=== PATIENT | female | born 1995 | race Caucasian/White ===

== ENCOUNTER 2016-10-14 05:17 | Emergency (ER) | payer BC ==
[~2016-10-14] VITALS: Ht 167.6 cm; Wt 60.2 kg
[2016-10-14 05:26] VITALS: TEMP 36.6; Ht 167.6 cm; Wt 60.2 kg
[2016-10-14] MEDS ORDERED: ONDA4TAB10 SL (06:00)
[2016-10-14] MEDS ORDERED: ONDANSETRON HOME PACK 4MG OD TAB PO ONE (06:00)
--- NOTE | 2016-10-14 06:16 | EMERGENCY ROOM VISIT NOTE ---
History First contact with patient: 05:33 Chief Complaint: HEAD INJURY (MINOR) Stated Complaint: CONCUSSION-PERSISTANT HEADACHE,UNEVEN PUPILS,NAUSE History of Present Illness The patient is a 20 year old female who presents to the Emergency Room with complaints of head injury 3 weeks ago. Patient states she fell sledding while she was standing on the sled and hit her head. She did not pass out. She states she had a headache and was nauseous. Patient states her symptoms have persisted since then and are worse with exercise. Patient complains of headache , nausea, difficulty focusing, difficulty concentrating, photophobia. She said 2 head injuries this past 3 weeks. She slightly hit her head the other day. Patient denies severe headache, fevers, chills, loss of vision, chest pain, dyspnea, localized weakness, confusion. She is tolerate by mouth fluids and food. Review of Systems See HPI for pertinent positives & negatives. A total of 10 systems reviewed and were otherwise negative. Past Medical/Surgical History none Social History Smoking Status: Never Smoker Smokeless Tobacco Use: No Alcohol Use: none Drug Use: none Occupation Status: [employer] Current/Historical Medications Scheduled Ondasetron Odt (Zofran Odt), 4 MG SL Q6H Allergies Coded Allergies: No Known Allergies (Unverified , 10/14/16) Physical Exam Vital Signs Date Time Temp Pulse Resp B/P Pulse Ox O2 Delivery O2 Flow Rate FiO2 10/14/16 05:26 36.6 77 18 152/88 99 Room Air Physical Exam VITALS: Vitals are noted on the nurse's note and reviewed by myself. Vital signs stable. GENERAL: Pleasant female, in no acute distress, nondiaphoretic, well-developed well-nourished. SKIN: The skin was without rashes, erythema, edema, or bruising. There is no tenting of the skin. Capillary reflex less than 2 seconds. HEAD: Normocephalic atraumatic. EARS: External auditory canals clear, tympanic membranes pearly mason without erythema or effusion bilaterally. EYES: Pupils equal round and reactive to light and accommodation. Conjunctivae without injection, sclerae without icterus. Extraocular movements intact. NOSE: Patent, turbinates without inflammation or discharge. No sinus tenderness. MOUTH: Mucous membranes moist. Pharynx without erythema or exudate. Uvula midline. Airway patent. Tongue does not deviate. NECK: Supple without nuchal rigidity. No lymphadenopathy. No thyromegaly. Cervical spine is nontender. No JVD. HEART: Regular rate and rhythm without murmurs gallops or rubs. LUNGS: Clear to auscultation bilaterally without wheezes, rales or rhonchi. No dullness to percussion. No retractions or accessory muscle use. ABDOMEN: Positive bowel sounds x 4. Normal tympanic percussion. Soft, nontender, without masses or organomegaly. Walker sign negative. No guarding or rebound tenderness. MUSCULOSKELETAL: No muscle atrophy, erythema, or edema noted. NEURO: Patient was alert and oriented to person place and time. Normal sensation to light and sharp touch. No focal neurological deficits. Cranial nerves II through XII grossly intact. No pronator drift. Cerebellar exam intact Medical Decision & Procedures Medications Administered Medications (Trade) Dose Ordered Sig/Beba Route Start Time Stop Time Status Last Admin Dose Admin Ondansetron HCl (ZOFRAN ODT 4MG Home Pack) 1 homepack UD ONCE PO 10/14/16 06:00 10/14/16 06:01 DC 10/14/16 06:05 1 HOMEPACK ED Course Prior records/ancillary studies reviewed. Triage Nursing notes reviewed. Additional history obtained from family. The patient's history was concerning for traumatic head injury Differential diagnosis: Etiologies such as concussion, contusion, fracture, subdural hematoma, epidural hematoma, intraparenchymal hemorrhage, as well as other traumatic pathologies were entertained. Physical examination findings: As above. ER treatment provided: Zofran ODT On reassessment the patient felt better. Diagnostics interpreted by me: deferred It appears the patient has a concussion. I discussed the risks and the benefits of CT scanning. Clinically the patient is doing well and does not appear to have a significant underlying injury. The pt/MOP felt comfortable with conservative observation with the understanding if the clinical picture change that imaging may be necessary at a later time. I gave my usual and customary discussion regarding this issue. Family was advised to follow-up post concussion clinic in a few days or here in the ER sooner for worsening headache , confusion, fevers, worsening signs or symptoms. Patient was neurovascularly and neurologically intact. She is well-appearing. By the evaluation outlined above emergent etiologies such as fracture, subdural hematoma, epidural hematoma , intraparenchymal hemorrhage, as well as others were deemed relatively unlikely. The pt informed about the findings as listed above. All questions were answered and pleased with the treatment. Return instructions were outlined and the patient was discharged in stable condition. Outpatient Prescription Management: zofran Referral: The patient was referred back to their primary care physician and post concussion clinic for follow-up in 2 to 3 days for a recheck of the current condition. Medical Decision as above Impression Primary Impression: Concussion Departure Information Dispostion Home / Self-Care Condition GOOD Prescriptions Ondasetron Odt (ZOFRAN ODT) 4 Mg Tab 4 MG SL Q6H, #10 TAB Prov: Melissa Ochoa ., KIARRA 10/14/16 Referrals No Doctor, Assigned (PCP) Forms HOME CARE DOCUMENTATION FORM, IMPORTANT VISIT INFORMATION Patient Instructions Concussion, [facility] Additional Instructions Follow up with the concussion clinic in [facility]. Call Saturday at 8 AM. . Zofran 4 m tablet every 6 hours as needed for nausea and vomiting. Read head injury handout and return for any symptoms. Tylenol 1000 mg as needed for pain (Maximum 3000 mg Tylenol in 24 hr period). Avoid alcohol and contact sports/activities for one week and follow up with family doctor prior to returning to these activities if still symptomatic. Ice and elevate head. Return to ER sooner for worsening headache, fevers, confusion, worsening signs or symptoms or as needed. Problem Qualifiers Primary Impression: Concussion Encounter type: initial encounter Loss of consciousness presence/duration: without LOC Qualified Codes: S06.0X0A - Concussion without loss of consciousness, initial encounter
[2016-10-14 06:21] VITALS: BP 125/74; PULSE 66; O2SAT 98
== END 2016-10-14 06:22 | disposition home or self-care (01) ==
LOC: C.EDB 05:19 → C.EDA 06:22
DX: S06.0X0A Concussion without loss of consciousness, initial encounter (principal); W18.09XA Striking against other object with subsequent fall, initial encounter; Y93.23 Activity, snow (alpine) (downhill) skiing, snowboarding, sledding, tobogganing and snow tubing